=== PATIENT | female | born 1950 | race Caucasian/White ===

== ENCOUNTER 2023-08-14 21:33 | Emergency (ER) | payer MEDICARE ==
[~2023-08-14] VITALS: Ht 160 cm; Wt 67.1 kg
[2023-08-14] MEDS ORDERED: ACETAMINOPHEN 325 MG TABLET ONE (22:12)
[2023-08-14] MEDS ORDERED: AMOX-430 PO (22:20)
[2023-08-14] MEDS ORDERED: TYL2T PO (22:20)
[2023-08-14] MEDS ORDERED: ACETAMINOPHEN 325 MG TABLET PO ONE (22:30)
[2023-08-14 23:09] VITALS: BP 152/77; TEMP 98.2; O2SAT 98
== END 2023-08-14 23:09 | disposition home or self-care (01) ==
LOC: ER 21:38
DX: S61.451A Open bite of right hand, initial encounter (principal); W54.0XXA Bitten by dog, initial encounter; Y93.89 Activity, other specified; Y92.89 Other specified places as the place of occurrence of the external cause; Y99.8 Other external cause status
CPT/HCPCS: 73130-TC